=== PATIENT | male | born 1985 | race Caucasian/White ===

== ENCOUNTER 2023-09-13 17:19 | Emergency (ER) | payer SELFPAY ==
[~2023-09-13] VITALS: Ht 182.9 cm; Wt 80.0 kg
[2023-09-13 17:33] VITALS: BP 127/80; PULSE 81; RESP 18; TEMP 98.6; O2SAT 100
== END 2023-09-13 18:30 | disposition home or self-care (01) ==
LOC: ER 17:19
DX: Z71.6 Tobacco abuse counseling (principal); F19.90 Other psychoactive substance use, unspecified, uncomplicated
CPT/HCPCS: 99281; 99406